=== PATIENT | female | born 1940 | race African-American/Black ===

== ENCOUNTER 2017-05-31 13:43 | Emergency (ER) | payer MEDICARE, OTHER ==
--- NOTE | 2017-05-31 13:58 | ED Physician Documentation ---
PD HPI FOCAL NEURO - Stated complaint Stated Complaint: RT FACIAL/HEAD NUMBNESS - History obtained from History obtained from: Patient - History of Present Illness Timing - onset: How many weeks ago (1) Timing - duration: Weeks (a week of numbness and some tenderness/pressure feeling in right cheek/periorbital area and then has feeling of some pressure in frontal head. States some tenderness right frontal/parietal scalp to palpation. No rash nor sores.) Timing - details: Gradual onset, Waxing and waning Severity of deficit: Moderate Weakness: No: Face, Arm, Leg Numbness: Face, Right. No: Arm, Leg Associated symptoms: No: Headache (not hurting but has pressure feeling frontal and right side head.), Nausea / vomiting, Head injury Contributing factors: negative: Anticoagulated Baseline status: positive: A&OX3, ambulatory, indep Similar symptoms before: Has not had sx before Recently seen: Not recently seen Review of Systems Constitutional: reports: Fatigue. denies: Fever, Chills, Myalgias, Weight Loss Eyes: denies: Loss of vision, Decreased vision, Photophobia Ears: denies: Loss of hearing, Ear pain, Drainage/discharge Nose: denies: Rhinorrhea / runny nose, Congestion, Sinus pressure / pain Throat: denies: Sore throat Cardiac: denies: Chest pain / pressure, Palpitations, Pedal edema, Calf pain Respiratory: denies: Dyspnea, Cough GI: denies: Abdominal Pain, Nausea, Vomiting, Diarrhea Skin: denies: Rash (she noted that the skin coloring in upper eyelids has lightened some graudally this past week or so.) Musculoskeletal: denies: Neck pain, Back pain, Extremity swelling Neurologic: denies: Generalized weakness, Focal weakness, Numbness, Near syncope (did feel slightly lightheaded today.) Endocrine: denies: Weight loss, Easy bruising / bleeding PD PAST MEDICAL HISTORY - Past Medical History Cardiovascular: Hypertension Respiratory: None Neuro: None Endocrine/Autoimmune: None - Present Medications Home Medications: Ambulatory Orders Medication Instructions Recorded Confirmed Dexamethasone [Decadron] 4 mg PO DAILY #5 tablet 05/31/17 Labetalol [Trandate] 200 mg PO DAILY 05/31/17 05/31/17 Lorazepam [Ativan] 1 mg PO BID PRN #12 tablet 05/31/17 Omeprazole [PriLOSEC] 05/31/17 Verapamil [Calan] 05/31/17 05/31/17 - Allergies Allergies/Adverse Reactions: Allergies Allergy/AdvReac Type Severity Reaction Status Date / Time No Known Drug Allergies Allergy Verified 05/31/17 14:16 PD ED PE NORMAL - Vitals Vital signs reviewed: Yes - General General: Alert and oriented X 3, No acute distress, Well developed/nourished - HEENT HEENT: Atraumatic, PERRL, EOMI (mild lithographers printer color of the skin in both upper eyelids. Mild edema of the lids. No rash nor sores. ), Ears normal (dried skin around canal), Moist mucous membranes, Pharynx benign - Neck Neck: Supple, no meningeal sign, No adenopathy, No JVD, No bruit - Cardiac Cardiac: RRR, No murmur - Respiratory Respiratory: No respiratory distress, Clear bilaterally - Abdomen Abdomen: Soft, Non tender - Back Back: No CVA TTP - Derm Derm: Normal color, Warm and dry, No rash - Extremities Extremities: No deformity, No tenderness to palpate, Normal ROM s pain, No edema , No calf tenderness / cord - Neuro Neuro: Alert and oriented X 3, hr receptionist 2-12 intact, No motor deficit, No sensory deficit, Normal speech Eye Opening: Spontaneous Motor: Obeys Commands Verbal: Oriented GCS Score: 15 - Psych Psych: Normal mood, Normal affect Results - Vitals Vitals: Oxygen O2 Source Room air - EKG (time done) 13:55 Rate: Rate (enter#) (74) Rhythm: NSR [place]: Normal Intervals: Normal [place] QRS: Normal Ischemia: Normal ST segments. No: ST elevation c/w ischemia, ST depression - Labs Labs: Laboratory Tests 05/31/17 05/31/17 05/31/17 14:09 14:09 14:09 WBC 4.9 RBC 4.13 L Hgb 13.1 Hct 38.0 MCV 92.1 MCH 31.7 H MCHC 34.3 RDW 13.5 Plt Count 201 MPV 8.3 Neut # 2.4 Lymph # 1.7 [place] # 0.5 Eos # 0.1 Baso # 0.0 Absolute Nucleated RBC 0.00 Nucleated RBC % 0.0 ESR 12 Sodium 140 Potassium 3.8 Chloride 104 Carbon Dioxide 27 Anion Gap 9.0 BUN 18 Creatinine 0.8 Estimated GFR (MDRD) 84 L Glucose 101 H Calcium 9.7 Magnesium 2.1 Total Bilirubin 0.8 AST 25 ALT 20 Alkaline Phosphatase 82 Total Protein 7.9 Albumin 4.5 Globulin 3.4 Albumin/Globulin Ratio 1.3 Lipase 15 L - Rads (name of study) head CT with and without Radiology: Prelim report reviewed (no acute process) PD MEDICAL DECISION MAKING - ED course Complexity details: reviewed results, considered differential (Consider intracranial processes such as tumors, bleeding, subdural, venous thrombosis. Also consider inflammatory processes such as vascular or temporal arteritis, metabolic such as electrolyte abnormalities. We tested for these and they appeared all normal. I presume therefore her numbness in the face as well as some tenderness in the scalp is a local effect with some inflammation. There is no rash and this is been going on for several days to week so I doubt shingles. She should watch for rash to develop though. She was concerned about some lightening in color of the upper eyelids. I am not sure of that except for may be some inflammation. She can follow-up with dermatology.), d/w patient Departure - Departure Disposition: 01 Home, Self Care Clinical Impression: Right facial numbness Headache Qualifiers: Headache type: tension-type Headache chronicity pattern: acute headache Intractability: not intractable Qualified Code(s): G44.209 - Tension-type headache, unspecified, not intractable Condition: Stable Record reviewed to determine appropriate education?: Yes Instructions: ED Paraesthesias Prescriptions: Dexamethasone [Decadron] 4 mg PO DAILY #5 tablet Lorazepam [Ativan] 1 mg PO BID PRN #12 tablet PRN Reason: Anxiety Comments: Your tests here appear normal. This included the scan of your head as well as blood tests. Your symptoms may relate to the stress and tension you have had, as you suggest, but I think there is likely an inflammatory component as well, given some numbness on the face and tenderness around the scalp. There is no sign of more serious cause at this point. I would suggest some anti- inflammatory daily for the next several days and I also prescribed a medicine to help with anxiety and sleep should you need that. Drink lots of fluids and stay well-hydrated. Continue your usual medications. Follow-up with your primary care in few days, call for an appointment. Discharge Date/Time: 05/31/17 16:48
[2017-05-31 14:35] LABS: BASOPHILS % (AUTO) 0.3 %; EOSINOPHILS # (AUTO) 0.1 10^3/uL (0.0-0.7); EOSINOPHILS % (AUTO) 2.6 %; HGB - HEMOGLOBIN 13.1 g/dL (12.0-16.0); LYMPHOCYTES # (AUTO) 1.7 10^3/uL (1.5-3.5); LYMPHOCYTES % (AUTO) 35.8 %; MEAN CORPUSCULAR HEMOGLOBIN 31.7 pg (27.0-31.0); MEAN CORPUSCULAR HGB CONC 34.3 g/dL (32.0-36.0); MEAN CORPUSCULAR VOLUME 92.1 fL (81.0-99.0); MEAN PLATELET VOLUME 8.3 fL (7.9-10.8); MONOCYTES # (AUTO) 0.5 10^3/uL (0.0-1.0); MONOCYTES % (AUTO) 11.2 %; NEUTROPHILS # (AUTO) 2.4 10^3/uL (1.5-6.6); NEUTROPHILS % (AUTO) 50.1 %; PLT - PLATELET COUNT 201 10^3/uL (130-450); RED BLOOD COUNT 4.13 10^6/uL (4.20-5.40); RED CELL DISTRIBUTION WIDTH 13.5 % (12.0-15.0); WHITE BLOOD COUNT 4.9 x10^3/uL (4.8-10.8)
[2017-05-31 14:46] LABS: ALBUMIN 4.5 g/dL (3.2-5.5); ALBUMIN/GLOBULIN RATIO 1.3 (1.0-2.2); BILIRUBIN,TOTAL 0.8 mg/dL (0.2-1.0); CALCIUM 9.7 mg/dL (8.5-10.3); CREATININE 0.8 mg/dL (0.4-1.0); MAGNESIUM 2.1 mg/dL (1.7-2.8); TOTAL PROTEIN 7.9 g/dL (6.7-8.2)
[2017-05-31] MEDS ORDERED: IOPAMIDOL-300 100 ML VIAL ONE (15:15)
[2017-05-31] MEDS ORDERED: IOPAMIDOL-300 100 ML VIAL IVP ONE (15:28)
--- NOTE | 2017-05-31 16:08 | CT Preliminary Report ---
Exam: CT HEAD W/WO IMPRESSION: 1. Negative CT scan of the head without and with contrast. No acute abnormality. [facility] SITE ID: [id number]
[2017-05-31] MEDS ORDERED: KETOROLAC 60 MG/2 ML VIAL IVP STA (16:20)
[2017-05-31] MEDS ORDERED: DEXAMETHASONE 10 MG/ML VIAL IVP STA (16:20)
--- NOTE | 2017-05-31 16:20 | CT Report ---
EXAM: CT HEAD, WITHOUT AND WITH CONTRAST. EXAM DATE: 05/31/2017 03:24 PM. CLINICAL HISTORY: 1 week of right facial numbness/pressure and scalp. COMPARISON: None. TECHNIQUE: Multiaxial CT images were obtained from the foramen magnum to the vertex prior to and foll owing contrast administration. Reformats: Coronal. IV contrast: 80 mL Isovue 300. In accordance with CT protocol optimization, one or more of the following dose reduction techniques w ere utilized for this exam: automated exposure control, adjustment of mA and/or KV based on patient s ize, or use of iterative reconstructive technique. FINDINGS: Parenchyma: No intraparenchymal hemorrhage. No evidence of mass, midline shift, or CT findings of inf arction. Izaguirre-white differentiation is distinct. No abnormal intracranial enhancement. Extraaxial Spaces: Normal for age. No subdural or epidural collections identified. Note is made of ex panded and partially empty sella turcica. Ventricles: No hydrocephalus. Sinuses and Orbits: Imaged paranasal sinuses, orbits, and mastoids show no significant abnormality. Bones: No evidence of fracture or calvarial defect. Other: None. IMPRESSION: 1. Negative CT scan of the head without and with contrast. No acute abnormality. [facility] Referring Provider Line: [phone] SITE ID: [id number]
[2017-05-31] MEDS ORDERED: LORazepam 0.5 MG TABLET PO STA (16:21)
[2017-05-31 20:04] VITALS: BP 144/72
== END 2017-05-31 16:48 | disposition home or self-care (01) ==
LOC: EDSEX → ED 13:43
DX: G44.209 Tension-type headache, unspecified, not intractable (principal); R20.0 Anesthesia of skin; I10 Essential (primary) hypertension
CPT/HCPCS: 36415; 70470; 80053; 83690; 83735; 85025; 85651; 93005; 96374; 96375; 99283; A9270; Q9967

== ENCOUNTER 2018-09-08 14:37 | Emergency (ER) | payer MEDICARE, OTHER ==
[2018-09-08 15:20] LABS: BILIRUBIN,URINE NEGATIVE (NEGATIVE); GLUCOSE, URINE (UA) NEGATIVE (NEGATIVE); KETONES,URINE (UA) NEGATIVE (NEGATIVE); LEUKOCYTE ESTERASE, URINE NEGATIVE (NEGATIVE); NITRITE,URINE NEGATIVE (NEGATIVE); OCCULT BLOOD,URINE NEGATIVE (NEGATIVE); PH,URINE 5.5 PH (5.0-7.5); PROTEIN,URINE NEGATIVE (NEGATIVE); UROBILINOGEN,URINE 0.2 (NORMAL) E.U./dL (NORMAL)
[2018-09-08 15:24] LABS: CLARITY,URINE CLEAR (CLEAR)
--- NOTE | 2018-09-08 15:27 | ED Physician Documentation ---
PD HPI ABD PAIN - Stated complaint Stated Complaint: PX ON LEFT SIDE ABDOMEN - Chief complaint Chief Complaint: Abd Pain - History obtained from History obtained from: Patient - History of Present Illness Timing - onset: How many days ago (several) Timing - details: Waxing and waning Quality: Sharp Location: LLQ Worsened by: Moving Similar symptoms before: Has not had sx before - Additional information Additional information: The patient is a 77-year-old female who presents with pain in the left lower quadrant. She first noticed it about 1 week ago, and reports that it is getting worse. She denies any traumatic injury. The pain is significantly worse in the morning when she first gets up, but then it abates by afternoon. She denies any associated fever, nausea or vomiting, or dysuria. She has noticed some frequency of urination. She denies history of similar symptoms in the past. Review of Systems Constitutional: denies: Fever Nose: denies: Congestion Throat: denies: Sore throat Cardiac: denies: Chest pain / pressure Respiratory: denies: Dyspnea, Cough GI: reports: Abdominal Pain. denies: Nausea, Vomiting, Diarrhea : reports: Frequency. denies: Dysuria Skin: denies: Rash Musculoskeletal: denies: Back pain, Extremity pain Neurologic: denies: Focal weakness, Numbness, Headache PD PAST MEDICAL HISTORY - Past Medical History Cardiovascular: Hypertension Respiratory: None Endocrine/Autoimmune: None - Present Medications Home Medications: Ambulatory Orders Medication Instructions Recorded Confirmed Labetalol [Trandate] 200 mg PO DAILY 05/31/17 05/31/17 Omeprazole [PriLOSEC] 20 mg 05/31/17 dexAMETHasone [Decadron] 4 mg PO DAILY #5 tablet 05/31/17 - Allergies Allergies/Adverse Reactions: Allergies Allergy/AdvReac Type Severity Reaction Status Date / Time No Known Drug Allergies Allergy Verified 09/08/18 14:47 - Social History Does the pt smoke?: No Smoking Status: Never smoker PD ED PE NORMAL - Vitals Vital signs reviewed: Yes (Borderline systolic hypertension initially.) - General General: Alert and oriented X 3, Well developed/nourished - HEENT HEENT: Atraumatic - Neck Neck: No adenopathy, No JVD - Cardiac Cardiac: RRR - Respiratory Respiratory: No respiratory distress, Clear bilaterally - Abdomen Abdomen: Normal bowel sounds, Soft, Non tender, No organomegaly - Back Back: No CVA TTP, No spinal TTP - Derm Derm: No rash - Extremities Extremities: No edema, No calf tenderness / cord - Neuro Neuro: Alert and oriented X 3, No motor deficit, Normal speech Results - Vitals Vitals: Vital Signs - 24 hr 09/08/18 09/08/18 14:45 18:13 Temperature 36.6 C 36.7 C Heart Rate 72 78 Respiratory 18 17 Rate Blood Pressure 147/63 H 136/66 H O2 Saturation 99 98 Oxygen O2 Source Room air - Labs Labs: Laboratory Tests 09/08/18 09/08/18 09/08/18 15:10 16:15 16:15 WBC 7.1 RBC 4.21 Hgb 12.7 Hct 39.6 MCV 94.1 MCH 30.2 MCHC 32.1 RDW 13.5 Plt Count 207 MPV 9.9 Neut # (Auto) 4.1 Lymph # (Auto) 2.1 [place] # (Auto) 0.7 Eos # (Auto) 0.2 Baso # (Auto) 0.0 Absolute Nucleated RBC 0.00 Nucleated RBC % 0.0 Sodium 143 Potassium 3.9 Chloride 107 Carbon Dioxide 27 Anion Gap 9.0 BUN 23 H Creatinine 0.8 Estimated GFR (MDRD) 84 L Glucose 104 H Calcium 10.1 Total Bilirubin 0.5 AST 19 ALT 20 Alkaline Phosphatase 79 Total Protein 7.5 Albumin 4.4 Globulin 3.1 Albumin/Globulin Ratio 1.4 Lipase 30 Urine Color YELLOW Urine Clarity CLEAR Urine pH 5.5 Ur Specific [place] 1.020 Urine Protein NEGATIVE Urine Glucose (UA) NEGATIVE Urine Ketones NEGATIVE Urine Occult Blood NEGATIVE Urine Nitrite NEGATIVE Urine Bilirubin NEGATIVE Urine Urobilinogen 0.2 (NORMAL) Ur Leukocyte Esterase NEGATIVE Ur Microscopic Review NOT INDICATED Urine Culture Comments NOT INDICATED Urine HCG, Qual NEGATIVE - Rads (name of study) CT abd/pelvis Radiology: Prelim report reviewed, EMP read contemporaneously, See rad report (Bladder wall thickening is at least in part due to under distention artifact. Otherwise normal CT scan. No pelvic lymphadenopathy. No intestinal obstruction or inflammation. No renal calculi or hydronephrosis.) PD MEDICAL DECISION MAKING - ED course Complexity details: reviewed results, re-evaluated patient, considered differential, d/w patient, d/w family ED course: The underlying cause for the patient's intermittent left lower quadrant abdominal pain is unclear at this time. Her lab results are unremarkable, with a white count of 7.1, and negative urinalysis. Her BUN is mildly elevated at 23, with a normal creatinine of 0.8. CT scan of the abdomen and pelvis reveals no evidence to explain the patient's symptoms. She does have a small fat filled right inguinal hernia, but that is not impacting her current presentation. On reexamination her abdomen remains absolutely benign. Treatment in the emergency department included administration of normal saline IV. I discussed with her and her the results of the work-up, the importance of outpatient follow-up, as well as potentially worrisome signs or symptoms that should prompt reevaluation in the emergency department. A DVD copy of her CT scan was burned for her to take with her to her follow-up appointment. Departure - Departure Disposition: 01 Home, Self Care Clinical Impression: Abdominal pain Qualifiers: Abdominal location: left lower quadrant Qualified Code(s): R10.32 - Left lower quadrant pain Condition: Stable Instructions: ED Abdominal Pain Unkn Cause Follow-Up: BERTO GRANADOS MD [Primary Care Provider] - Comments: Follow-up with your primary physician within 1 week. Call to schedule an appointment. Take the DVD copy of your CT scan with you to the appointment. Return to the emergency department if you develop recurrent or increasing abdominal pain, or otherwise worsening symptoms. Discharge Date/Time: 09/08/18 18:13
[2018-09-08 15:30] LABS: HCG UR QUAL NEGATIVE
[2018-09-08] MEDS ORDERED: SODIUM CHLORIDE 0.9% 1,000 ML IV ONE (15:31)
[2018-09-08] MEDS ORDERED: IOVERSOL 320 100 ML VIAL IVP ONE ×2 (15:47→17:08)
[2018-09-08 16:24] LABS: BASOPHILS % (AUTO) 0.3 %; EOSINOPHILS # (AUTO) 0.2 10^3/uL (0.0-0.7); EOSINOPHILS % (AUTO) 2.4 %; HGB - HEMOGLOBIN 12.7 g/dL (12.0-16.0); LYMPHOCYTES # (AUTO) 2.1 10^3/uL (1.5-3.5); LYMPHOCYTES % (AUTO) 29.1 %; MEAN CORPUSCULAR HEMOGLOBIN 30.2 pg (27.0-31.0); MEAN CORPUSCULAR HGB CONC 32.1 g/dL (32.0-36.0); MEAN CORPUSCULAR VOLUME 94.1 fL (81.0-99.0); MEAN PLATELET VOLUME 9.9 fL (7.9-10.8); MONOCYTES # (AUTO) 0.7 10^3/uL (0.0-1.0); MONOCYTES % (AUTO) 9.3 %; NEUTROPHILS # (AUTO) 4.1 10^3/uL (1.5-6.6); NEUTROPHILS % (AUTO) 57.9 %; PLT - PLATELET COUNT 207 10^3/uL (130-450); RED BLOOD COUNT 4.21 10^6/uL (4.20-5.40); RED CELL DISTRIBUTION WIDTH 13.5 % (12.0-15.0); WHITE BLOOD COUNT 7.1 x10^3/uL (4.8-10.8)
[2018-09-08 16:39] LABS: ALBUMIN 4.4 g/dL (3.2-5.5); ALBUMIN/GLOBULIN RATIO 1.4 (1.0-2.2); BILIRUBIN,TOTAL 0.5 mg/dL (0.2-1.0); CALCIUM 10.1 mg/dL (8.5-10.3); CREATININE 0.8 mg/dL (0.4-1.0); TOTAL PROTEIN 7.5 g/dL (6.7-8.2)
--- NOTE | 2018-09-08 17:31 | CT Report ---
Reason: LLQ pain Procedure Date: 09/08/2018 Accession Number: [id number] / [id number] Procedure: CT - Abdomen/Pelvis W CPT Code: FULL RESULT: EXAM: CT ABDOMEN AND PELVIS EXAM DATE: 09/08/2018 05:07 PM. CLINICAL HISTORY: LLQ pain. COMPARISONS: 06 PULMONARY CTA 03/03/2007 8:02 PM. TECHNIQUE: Routine helical CT imaging was performed through the abdomen and pelvis. IV contrast: OPTI 320 100ML. Enteric contrast: No. Reconstructions: Coronal and sagittal. In accordance with CT protocol optimization, one or more of the following dose reduction techniques were utilized for this exam: automated exposure control, adjustment of mA and/or KV based on patient size, or use of iterative reconstructive technique. FINDINGS: ABDOMEN: Lung Bases: Incompletely included lower lungs are grossly clear. Heart size is within normal limits. No basilar effusions. Liver: Unremarkable. Spleen: Unremarkable. Pancreas: Unremarkable. Gallbladder/Bile Ducts: Gallbladder is unremarkable. Biliary ductal dilatation, stable from the prior CT from 03/03/2007. Adrenal Glands: Unremarkable. Kidneys: No mass, calculi, or hydronephrosis. Peritoneum/Mesentery/Bowel: No free fluid, free air, or collection. No intestinal obstruction or inflammation. Colonic diverticulosis. No diverticulitis. Lymph nodes: No mesenteric, periportal, or retroperitoneal lymphadenopathy. Vasculature: Abdominal aorta is nonaneurysmal. Portal vein is patent. Hepatic veins are patent. PELVIS: Bladder is thick-walled, may be due to underdistention artifact. Uterus and ovaries are present. No obvious abnormally enlarged adnexal abnormalities. No pelvic lymphadenopathy. Small fat filled right inguinal hernia. Bones: No suspicious osseous lesions. IMPRESSION: Bladder wall thickening is at least in part due to underdistention artifact. Correlation as to the presence of cystitis. [facility]
[2018-09-08 18:14] VITALS: BP 136/66
== END 2018-09-08 18:13 | disposition home or self-care (01) ==
LOC: ED 14:37
DX: R10.32 Left lower quadrant pain (principal); I10 Essential (primary) hypertension
CPT/HCPCS: 36415; 74177; 80053; 81003; 81025; 83690; 85025; 99283; 99284; Q9967; 81001; 87086

== ENCOUNTER 2020-08-30 17:23 | Emergency (ER) | payer MEDICARE, OTHER ==
[2020-08-30] MEDS ORDERED: LOPERAMIDE 2 MG CAPSULE PO STA ×2 (17:50→18:59)
[2020-08-30] MEDS ORDERED: SODIUM CHLORIDE 0.9% 1,000 ML IV STA (17:50)
[2020-08-30] MEDS ORDERED: DICYCLOMINE 10 MG CAPSULE PO STA (17:50)
[2020-08-30] MEDS ORDERED: ONDANSETRON 4 MG/2 ML VIAL IVP STA (17:50)
--- NOTE | 2020-08-30 17:51 | ED Physician Documentation ---
PD HPI ABD PAIN - Stated complaint Stated Complaint: ABD PX/DIARRHEA - Chief complaint Chief Complaint: Abd Pain - History obtained from History obtained from: Patient - Additional information Additional information: 79-year-old woman with history of hypertension presents with what she believes to be food poisoning. She had some leftover salmon that had been in the refrigerator for about a week. She warmed it up today and as she was eating it she started to feel some early satiety and then some consequently developed abdominal cramps, nausea, and profuse watery diarrhea. No sick contacts or f lisette. Review of Systems Constitutional: reports: Sweats. denies: Fever, Chills Cardiac: reports: Reviewed and negative Respiratory: reports: Reviewed and negative PD PAST MEDICAL HISTORY - Past Medical History Cardiovascular: Hypertension Respiratory: None Neuro: None Endocrine/Autoimmune: None GI: None AIRCRAFT CLEANER: None : None HEENT: Dental implants Psych: None Musculoskeletal: None Derm: None - Past Surgical History General: Appendectomy Ortho: Knee replacement, Rotator cuff repair HEENT: Tonsil/Adenoidectomy - Present Medications Home Medications: Ambulatory Orders Medication Instructions Recorded Confirmed Labetalol [Trandate] 200 mg PO DAILY 05/31/17 08/30/20 Famotidine [Pepcid] 20 mg PO DAILY 08/30/20 08/30/20 - Allergies Allergies/Adverse Reactions: Allergies Allergy/AdvReac Type Severity Reaction Status Date / Time No Known Drug Allergies Allergy Verified 08/30/20 17:35 - Social History Does the pt smoke?: No Smoking Status: Never smoker Does the pt drink ETOH?: Yes Does the pt have substance abuse?: No - Immunizations Immunizations are current?: Yes - POLST Patient has POLST: No PD ED PE NORMAL - Vitals Vital signs reviewed: Yes - General General: Alert and oriented X 3, No acute distress - HEENT HEENT: PERRL, EOMI - Neck Neck: Supple, no meningeal sign, No bony TTP - Cardiac Cardiac: RRR, No murmur - Respiratory Respiratory: No respiratory distress, Clear bilaterally - Abdomen Abdomen: Soft, Non tender - Derm Derm: Normal color, Warm and dry - Extremities Extremities: No edema, No calf tenderness / cord - Neuro Neuro: Alert and oriented X 3, Normal speech Results - Vitals Vitals: Vital Signs - 24 hr 08/30/20 17:33 Temperature 36.6 C Heart Rate 77 Respiratory 16 Rate Blood Pressure 143/78 H O2 Saturation 97 Oxygen O2 Source Room air - Labs Labs: Laboratory Tests 08/30/20 08/30/20 08/30/20 17:52 17:58 17:58 WBC 8.3 RBC 4.02 L Hgb 12.6 Hct 38.2 MCV 95.0 MCH 31.3 H MCHC 33.0 RDW 12.8 Plt Count 191 MPV 9.7 Neut # (Auto) 6.0 Lymph # (Auto) 1.5 [place] # (Auto) 0.6 Eos # (Auto) 0.1 Baso # (Auto) 0.0 Absolute Nucleated RBC 0.00 Nucleated RBC % 0.0 Sodium 141 Potassium 4.0 Chloride 106 Carbon Dioxide 25 Anion Gap 10.0 BUN 17 Creatinine 0.8 Estimated GFR (MDRD) 83 L Glucose 116 H Calcium 9.7 Total Bilirubin 1.0 AST 25 ALT 24 Alkaline Phosphatase 64 Total Protein 7.7 Albumin 4.5 Globulin 3.2 Albumin/Globulin Ratio 1.4 Lipase 25 Urine Color YELLOW Urine Clarity CLEAR Urine pH 6.0 Ur Specific [place] 1.025 Urine Protein NEGATIVE Urine Glucose (UA) NEGATIVE Urine Ketones NEGATIVE Urine Occult Blood NEGATIVE Urine Nitrite NEGATIVE Urine Bilirubin NEGATIVE Urine Urobilinogen 0.2 (NORMAL) Ur Leukocyte Esterase NEGATIVE Ur Microscopic Review NOT INDICATED Urine Culture Comments NOT INDICATED PD MEDICAL DECISION MAKING - ED course ED course: Is a sarah 79-year-old woman who presents with what she thinks is food poisoning. She has a benign exam, unremarkable vitals and normal labs. After the administration of Bentyl, IV fluids, Zofran, and Imodium she is asymptomatic and passed an oral challenge. Departure - Departure Disposition: 01 Home, Self Care Clinical Impression: Food poisoning Condition: Good Record reviewed to determine appropriate education?: Yes Instructions: ED Gastroenteritis Vs Food Poison Comments: Return tomorrow if not better, should be better by then.
[2020-08-30 18:06] LABS: BASOPHILS % (AUTO) 0.2 %; EOSINOPHILS # (AUTO) 0.1 10^3/uL (0.0-0.7); EOSINOPHILS % (AUTO) 1.7 %; HCT - HEMATOCRIT 38.2 % (37.0-47.0); HGB - HEMOGLOBIN 12.6 g/dL (12.0-16.0); LYMPHOCYTES # (AUTO) 1.5 10^3/uL (1.5-3.5); LYMPHOCYTES % (AUTO) 18.5 %; MEAN CORPUSCULAR HEMOGLOBIN 31.3 pg (27.0-31.0); MEAN PLATELET VOLUME 9.7 fL (7.9-10.8); MONOCYTES # (AUTO) 0.6 10^3/uL (0.0-1.0); MONOCYTES % (AUTO) 7.6 %; NEUTROPHILS % (AUTO) 71.8 %; PLT - PLATELET COUNT 191 10^3/uL (130-450); RED BLOOD COUNT 4.02 10^6/uL (4.20-5.40); RED CELL DISTRIBUTION WIDTH 12.8 % (12.0-15.0); WHITE BLOOD COUNT 8.3 x10^3/uL (4.8-10.8)
[2020-08-30 18:16] LABS: BILIRUBIN,URINE NEGATIVE (NEGATIVE); GLUCOSE, URINE (UA) NEGATIVE (NEGATIVE); KETONES,URINE (UA) NEGATIVE (NEGATIVE); LEUKOCYTE ESTERASE, URINE NEGATIVE (NEGATIVE); NITRITE,URINE NEGATIVE (NEGATIVE); OCCULT BLOOD,URINE NEGATIVE (NEGATIVE); PROTEIN,URINE NEGATIVE (NEGATIVE); UROBILINOGEN,URINE 0.2 (NORMAL) E.U./dL (NORMAL)
[2020-08-30 18:19] LABS: CLARITY,URINE CLEAR (CLEAR)
[2020-08-30 18:19] LABS: ALBUMIN 4.5 g/dL (3.2-5.5); ALBUMIN/GLOBULIN RATIO 1.4 (1.0-2.2); CALCIUM 9.7 mg/dL (8.5-10.3); CREATININE 0.8 mg/dL (0.4-1.0); TOTAL PROTEIN 7.7 g/dL (6.7-8.2)
[2020-08-30] MEDS ORDERED: ONDANSETRON ODT 4 MG Prepack 2 TL STA (18:59)
[2020-08-30 19:27] VITALS: BP 139/76
== END 2020-08-30 19:25 | disposition home or self-care (01) ==
LOC: ED 17:23
DX: A05.9 Bacterial foodborne intoxication, unspecified (principal)
CPT/HCPCS: 36415; 80053; 81003; 83690; 85025; 96361; 96374; 99283; A9270; 81001; 87086

== ENCOUNTER 2020-11-06 13:42 | Outpatient (CLI) | payer MEDICARE ==
--- NOTE | 2020-11-06 15:56 | CT Report ---
PROCEDURE: HEAD WO INDICATIONS: CLOSED HEAD INJURY TECHNIQUE: Noncontrast 4.5 mm thick angled axial sections acquired from the foramen magnum to the vertex. For r adiation dose reduction, the following was used: automated exposure control, adjustment of mA and/or kV according to patient size. COMPARISON: Correlation is made with prior head CT, 05/31/2017 FINDINGS: Image quality: There is streak artifact seen through the skull base. CSF spaces: Basal cisterns are patent. No extra-axial fluid collections. Ventricles are normal in size and shape. Brain: No midline shift. No intracranial masses or hemorrhage. Izaguirre-white matter interface is norm al. Mild, age-appropriate brain parenchymal volume loss is seen. Skull and face: Calvarium and visualized facial bones are intact, without suspicious lesions. Sinuses: Visualized sinuses and mastoids are clear. IMPRESSION: No intracranial hemorrhage is seen. No significant intracranial abnormality is seen. Reviewed by: Angelito Coleman MD on 11/06/2020 2:55 PM [facility]DT Approved by: Angelito Coleman MD on 11/06/2020 2:55 PM AKDT Station ID: [id number]
== END 2020-11-06 13:43 | disposition home or self-care (01) ==
LOC: DI 13:42
PROVIDERS: ATTEND Registered Nurse
DX: Z87.820 Personal history of traumatic brain injury (principal)

== ENCOUNTER 2020-11-25 17:33 | Emergency (ER) | payer MEDICARE ==
[2020-11-25] MEDS ORDERED: IOVERSOL 320 100 ML VIAL IVP ONE ×2 (18:42→19:38)
[2020-11-25 18:49] LABS: BASOPHILS % (AUTO) 0.4 %; EOSINOPHILS # (AUTO) 0.3 10^3/uL (0.0-0.7); EOSINOPHILS % (AUTO) 4.6 %; HCT - HEMATOCRIT 37.1 % (37.0-47.0); HGB - HEMOGLOBIN 12.3 g/dL (12.0-16.0); LYMPHOCYTES # (AUTO) 2.2 10^3/uL (1.5-3.5); LYMPHOCYTES % (AUTO) 39.6 %; MEAN CORPUSCULAR HEMOGLOBIN 31.1 pg (27.0-31.0); MEAN CORPUSCULAR HGB CONC 33.2 g/dL (32.0-36.0); MEAN CORPUSCULAR VOLUME 93.9 fL (81.0-99.0); MEAN PLATELET VOLUME 9.4 fL (7.9-10.8); MONOCYTES # (AUTO) 0.6 10^3/uL (0.0-1.0); MONOCYTES % (AUTO) 10.2 %; NEUTROPHILS # (AUTO) 2.5 10^3/uL (1.5-6.6); PLT - PLATELET COUNT 203 10^3/uL (130-450); RED BLOOD COUNT 3.95 10^6/uL (4.20-5.40); RED CELL DISTRIBUTION WIDTH 12.5 % (12.0-15.0); WHITE BLOOD COUNT 5.5 x10^3/uL (4.8-10.8)
[2020-11-25 19:02] LABS: ALBUMIN 4.3 g/dL (3.2-5.5); ALBUMIN/GLOBULIN RATIO 1.4 (1.0-2.2); BILIRUBIN,TOTAL 0.7 mg/dL (0.2-1.0); CALCIUM 9.8 mg/dL (8.5-10.3); CREATININE 0.9 mg/dL (0.4-1.0); POTASSIUM 3.7 mmol/L (3.5-5.0); TOTAL PROTEIN 7.3 g/dL (6.7-8.2)
--- NOTE | 2020-11-25 20:26 | CT Report ---
PROCEDURE: ANGIO HEAD W/WO INDICATIONS: sudden onset headache CONTRAST: IV CONTRAST: Optiray 320 ml: 80 PO CONTRAST: *NO PO CONTRAST TECHNIQUE: Precontrast 4.5 mm thick angled axial sections acquired from the foramen magnum to the vertex. Afte r the administration of intravenous contrast, 1 mm thick sections acquired through the [place] of Will is. Postcontrast 4.5 mm thick sections then re-acquired from the foramen magnum to the vertex. 3-di mensional xlfjsbn-sajkuigcy-sgwxnggwes (MIP) and/or volume rendering reformats were acquired of the c entral intracranial vasculature. For radiation dose reduction, the following was used: automated ex posure control, adjustment of mA and/or kV according to patient size. COMPARISON: CT head 11/06/2020 FINDINGS: Image quality: Excellent. Anterior circulation: Mild atherosclerotic calcifications are seen in the intracranial portions of t he internal carotid arteries bilaterally without hemodynamically significant stenosis. Small funnel-s haped projections is seen at the medial aspect of the distal internal carotid arteries bilaterally, m easuring 3 mm on the right (34/12) and 2 mm on the left (33/12), favored represent infundibula at the posterior communicating artery origins rather than aneurysms. The flow within the paired anterior ce rebral arteries is normal and symmetric. The flow within the middle cerebral arteries is normal and symmetric. The anterior communicating artery is seen. Posterior circulation: Visualized portions of the vertebral arteries demonstrate normal caliber, and join to form a normal appearing basilar artery. Flow within the posterior cerebral arteries is norm al and symmetric. No aneurysms are seen. CSF spaces: Ventricles are symmetric in size and shape. Basal cisterns are patent. No extra-axial fluid collections. Brain: No acute intracranial hemorrhage, midline shift, or mass effect. Mild prominence of the ventri cles and sulci is consistent with age-related cerebral and cerebellar volume loss. Mild scattered hyp odensities in subcortical and periventricular white matter most commonly encountered in the setting o f microvascular ischemic changes. Skull and face: Calvarium and facial bones appear intact, without suspicious lesions. Sinuses: Visualized sinuses and mastoids are clear. IMPRESSION: 1.No acute intracranial hemorrhage or mass effect. 2.Small 2 to 3 mm tubular projections at the posteromedial supraclinoid portions of the internal drake tid arteries bilaterally are suspected to represent small infundibula at the origins of the posterior communicating arteries rather than intracranial aneurysms. 3.No hemodynamically significant arterial stenosis or occlusion. Reviewed by: Clement Jacques MD on 11/25/2020 8:25 PM PDT Approved by: Clement Jacques MD on 11/25/2020 8:25 PM PDT Station ID: [id number]
--- NOTE | 2020-11-25 20:26 | ED Physician Documentation ---
History of Present Illness - Stated complaint Stated Complaint: HEAD PX - Chief complaint Chief Complaint: Neuro - History obtained from History obtained from: Patient - History of Present Illness Timing: Today Pain level max: 8 Pain level now: 0 - Additonal information Additional information: Patient is an 80-year-old female who presents to the emergency department complaining of a headache tonight. She states this started about 430 this afternoon and was sudden onset. She states she took Tylenol and the headache resolved. She called her doctor immediately after the headache started and they took her blood pressure and told her to go to the emergency department. Patient is currently asymptomatic. Has a history of headaches and this felt similar. Denies any falls or trauma. Nothing makes it better or worse. Review of Systems Ten Systems: 10 systems reviewed and negative Constitutional: denies: Fever, Chills Eyes: denies: Photophobia Ears: denies: Ear pain Nose: denies: Rhinorrhea / runny nose, Congestion Respiratory: denies: Dyspnea, Cough GI: denies: Nausea, Vomiting Skin: denies: Rash Musculoskeletal: denies: Neck pain, Back pain Neurologic: denies: Headache PD PAST MEDICAL HISTORY - Past Medical History Cardiovascular: Hypertension Respiratory: None Neuro: None Endocrine/Autoimmune: None GI: None LOAN UNDERWRITER: None : None HEENT: Dental implants Psych: None Musculoskeletal: None Derm: None - Past Surgical History General: Appendectomy Ortho: Knee replacement, Rotator cuff repair HEENT: Tonsil/Adenoidectomy - Present Medications Home Medications: Ambulatory Orders Medication Instructions Recorded Confirmed Labetalol [Trandate] 200 mg PO DAILY 05/31/17 08/30/20 Famotidine [Pepcid] 20 mg PO DAILY 08/30/20 08/30/20 - Allergies Allergies/Adverse Reactions: Allergies Allergy/AdvReac Type Severity Reaction Status Date / Time No Known Drug Allergies Allergy Verified 11/25/20 17:36 - Social History Does the pt smoke?: No Smoking Status: Never smoker Does the pt drink ETOH?: Yes Does the pt have substance abuse?: No - Immunizations Immunizations are current?: Yes - POLST Patient has POLST: No PD ED PE NORMAL - Vitals Vital signs reviewed: Yes - General General: Alert and oriented X 3, No acute distress - HEENT HEENT: Atraumatic, PERRL, EOMI, Moist mucous membranes - Neck Neck: Supple, no meningeal sign, No JVD, No bruit - Cardiac Cardiac: RRR, No murmur, Strong equal pulses - Respiratory Respiratory: No respiratory distress, Clear bilaterally - Abdomen Abdomen: Soft, Non tender, Non distended - Derm Derm: Warm and dry - Extremities Extremities: No edema, No calf tenderness / cord - Neuro Neuro: Alert and oriented X 3, ventilation equipment tender 2-12 intact, No motor deficit, No sensory deficit, Normal speech Eye Opening: Spontaneous Motor: Obeys Commands Verbal: Oriented GCS Score: 15 - Psych Psych: Normal mood, Normal affect Results - Vitals Vitals: Vital Signs - 24 hr 11/25/20 11/25/20 11/25/20 17:36 19:42 20:37 Temperature 36.5 C 36.5 C Heart Rate 73 72 71 Respiratory 16 16 16 Rate Blood Pressure 177/70 H 168/99 H 158/95 H O2 Saturation 98 100 99 Oxygen O2 Source Room air - Labs Labs: Laboratory Tests 11/25/20 11/25/20 18:43 18:43 WBC 5.5 RBC 3.95 L Hgb 12.3 Hct 37.1 MCV 93.9 MCH 31.1 H MCHC 33.2 RDW 12.5 Plt Count 203 MPV 9.4 Neut # (Auto) 2.5 Lymph # (Auto) 2.2 Forrest # (Auto) 0.6 Eos # (Auto) 0.3 Baso # (Auto) 0.0 Absolute Nucleated RBC 0.00 Nucleated RBC % 0.0 Sodium 139 Potassium 3.7 Chloride 102 Carbon Dioxide 27 Anion Gap 10.0 BUN 24 H Creatinine 0.9 Estimated GFR (MDRD) 73 L Glucose 104 H Calcium 9.8 Total Bilirubin 0.7 AST 21 ALT 21 Alkaline Phosphatase 70 Total Protein 7.3 Albumin 4.3 Globulin 3.0 Albumin/Globulin Ratio 1.4 - Rads (name of study) CT angio head Radiology: Final report received, EMP read contemporaneously, See rad report (No acute abnormality) PD MEDICAL DECISION MAKING - ED course Complexity details: considered differential, d/w patient ED course: No acute findings on head CT or laboratory testing. Patient is asymptomatic here and is requesting to go home at this time. We will have her follow-up with her doctor for further care. Patient counseled regarding signs and symptoms for which I believe and urgent re-evaluation would be necessary. Patient with good understanding of and agreement to plan and is comfortable going home at this time This document was made in part using voice recognition software. While efforts are made to proofread this document, sound alike and grammatical errors may occur. Departure - Departure Disposition: 01 Home, Self Care Clinical Impression: Headache Qualifiers: Headache type: unspecified Headache chronicity pattern: unspecified pattern Intractability: not intractable Qualified Code(s): R51.9 - Headache, unspecified Hypertension Qualifiers: Hypertension type: unspecified Qualified Code(s): I10 - Essential (primary) hypertension Condition: Good Instructions: ED Cephalgia Unspecified Follow-Up: Aria Gloria ARNP [Primary Care Provider] - Within 1 week Comments: Your testing does not show any acute abnormalities today. Please follow-up with your doctor for further care. Return if you worsen. Discharge Date/Time: 11/25/20 20:37
[2020-11-25 20:39] VITALS: BP 158/95
== END 2020-11-25 20:37 | disposition home or self-care (01) ==
LOC: ED 17:33
DX: R51.9 Headache, unspecified (principal); I10 Essential (primary) hypertension
CPT/HCPCS: 36415; 70496; 80053; 85025; 99284; Q9967

== ENCOUNTER 2021-08-12 08:00 | Outpatient (CLI) | payer MEDICARE ==
--- NOTE | 2021-08-12 17:08 | XRAY Report ---
PROCEDURE: Chest 2 View X-Ray INDICATIONS: CHEST PAIN/FATIGUE TECHNIQUE: 2 view(s) of the chest. COMPARISON: None. FINDINGS: Surgical changes and devices: None. Lungs and pleura: No pleural effusions or pneumothorax. Lungs are clear. Mediastinum: Mediastinal contours are normal. Heart size is normal. Bones and chest wall: No suspicious bony abnormalities. Soft tissues appear unremarkable. IMPRESSION: No acute cardiopulmonary disease process. Reviewed by: Lizy Kramer MD, PhD on 08/12/2021 5:07 PM PDT Approved by: Lizy Kramer MD, PhD on 08/12/2021 5:07 PM PDT Station ID: [id number]
== END 2021-08-12 23:59 | disposition home or self-care (01) ==
LOC: DI.S 08:00
PROVIDERS: ATTEND Registered Nurse
DX: R07.89 Other chest pain (principal); R53.83 Other fatigue

== ENCOUNTER 2021-08-12 08:00 | Outpatient (CLI) | payer MEDICARE | END 2021-08-12 23:59 | disposition home or self-care (01) | LOC: LAB.S 08:00 | PROVIDERS: ATTEND Registered Nurse | DX: R53.83 Other fatigue (principal); R35.0 Frequency of micturition | CPT/HCPCS: 87086 ==

== ENCOUNTER 2021-08-14 10:34 | Outpatient (CLI) | payer MEDICARE ==
[2021-08-14 14:59] LABS: THYROID STIMULATING HORMONE 3.82 uIU/mL (0.34-5.60)
[2021-08-14 15:27] LABS: FOLLICLE STIMULATING HORMONE 67.03 mIU/mL
[2021-08-14 15:28] LABS: LUTEINIZING HORMONE 24.47 mIU/mL
[2021-08-15 04:08] LABS: RPR Non Reactive (Non Reactive)
[2021-08-15 05:09] LABS: HCV AB <0.1 s/co ratio (0.0-0.9)
[2021-08-15 06:09] LABS: ESTRADIOL 11.9 pg/mL (.)
[2021-08-17 07:08] LABS: HIV-1 RNA BY PCR QUANT <20 copies/mL (.)
== END 2021-08-14 10:35 | disposition home or self-care (01) ==
LOC: LAB.S 10:34
PROVIDERS: ATTEND Registered Nurse
DX: N64.4 Mastodynia (principal); R61 Generalized hyperhidrosis; R42 Dizziness and giddiness; R53.83 Other fatigue; Z20.2 Contact with and (suspected) exposure to infections with a predominantly sexual mode of transmission; R35.0 Frequency of micturition
CPT/HCPCS: 36415; 81599; 82670; 83001; 83002; 84443; 86480; 86592; 86695; 86696; 86803; 87086; 87536